=== PATIENT | female | born 1975 | race Caucasian/White ===

== ENCOUNTER 2021-06-12 13:05 | Emergency (ER) | payer OTHER ==
[2021-06-12 13:11] VITALS: BP 127/83; PULSE 75; TEMP 98.3; BMI 31.6
[2021-06-12] MEDS ORDERED: KETOROLAC TROMETHAMINE 30 MG/1 ML VIAL IM ONE (13:32)
[2021-06-12] MEDS ORDERED: KETOROLAC TROMETHAMINE 30 MG/1 ML VIAL ONE (13:40)
== END 2021-06-12 15:10 | disposition home or self-care (01) ==
LOC: JER 13:05 → JERFT 13:05
PROC: 3E0234Z Introduction of Serum, Toxoid and Vaccine into Muscle, Percutaneous Approach (ICD-10-PCS; principal; 2021-06-12)
DX: M25.561 Pain in right knee (principal)
CPT/HCPCS: 73562-TC-RT-FY; 99284-25